=== PATIENT | female | born 1990 | race American Indian/Alaskan Native ===

== ENCOUNTER 2016-11-25 15:30 | Emergency (ER) | payer SELFPAY ==
[~2016-11-25] VITALS: Ht 160 cm; Wt 78.3 kg
[2016-11-25 15:32] VITALS: Ht 160 cm; Wt 78.3 kg
[2016-11-25 17:13] LABS: BASOPHILS % 0.5 % (0.0-2.0); EOSINOPHILS # 0.1 10^3/ul (0.0-0.5); EOSINOPHILS % 0.6 % (0.0-7.0); HEMATOCRIT 35.7 % (37.0-47.0); HEMOGLOBIN 12.3 g/dl (12.0-16.0); LYMPHOCYTES # 2.4 10^3/ul (0.8-2.9); LYMPHOCYTES % 26.2 % (15.0-51.0); MEAN CORPUSCULAR HGB CONC 34.5 g/dl (32.0-37.0); MEAN CORPUSCULAR VOLUME 89.7 fl (82.0-101.0); MEAN PLATELET VOLUME 7.7 fl (7.4-10.4); MONOCYTE # 0.6 10^3/ul (0.3-0.9); MONOCYTES % 6.1 % (0.0-11.0); NEUTROPHILS % 66.6 % (39.0-77.0); PLATELET COUNT 317 10^3/UL (140-440); RED BLOOD COUNT 3.98 10^6/ul (4.20-5.40); RED CELL DISTRIBUTION WIDTH 12.8 % (11.5-14.5)
[2016-11-25 17:17] LABS: CONDITION 1
[2016-11-25 17:42] LABS: ADD UMIC YES; URINE BILIRUBIN (Dip) NEGATIVE (NEGATIVE); URINE BLOOD (Dip) TRACE (NEGATIVE); URINE COLOR LT. YELLOW (YELLOW); URINE GLUCOSE (Dip) NEGATIVE (NEGATIVE); URINE KETONES (Dip) TRACE (NEGATIVE); URINE LEUKOCYTE ESTERASE (Dip) 3+ (NEGATIVE); URINE NITRITE (Dip) NEGATIVE (NEGATIVE); URINE TOTAL PROTEIN (Dip) NEGATIVE (NEGATIVE); URINE UROBILINOGEN (Dip) 0.2 E.U./dL (0.1-1.0)
--- NOTE | 2016-11-25 17:55 | RADRPT ---
PROCEDURE: OB Ultrasound. CLINICAL INDICATION: Positive test. Pelvic pain. TECHNIQUE: Ultrasound of the pelvis was performed with transabdominal and transvaginal sonography in the axial and sagittal planes. COMPARISON: No prior study is available for comparison. FINDINGS: There is a single intrauterine gestational sac. pole and yolk sac are present. There is heart motion. heart rate is 124 beats per minute. [place]-rump length is 0.60 cm. Mean sac diameter is 1.60 cm. Menstrual age by ultrasound dates is 6 weeks 3 days. This indicates an expected date of delivery of 07/18/2017. The right ovary appears normal measuring 3.6 x 2.3 cm. The left ovary appears normal measuring 2.5 x 2.4 cm. Color Doppler and pulsed Doppler sonography demonstrate normal flow to the ovaries. There is no other pelvic mass or free fluid. IMPRESSION: 1. Single live intrauterine gestation of 6 weeks 3 days menstrual age by ultrasound dates. 2. Expected date of delivery is 07/18/2017. RPTAT: QQ .Rao Ibarra MD, Date Time Electronically viewed and signed by .Rao Ibarra MD, on 11/25/2016 17:55 .R/
[2016-11-25 17:58] LABS: BACTERIA,URINE FEW; SQUAMOUS EPITHELIAL CELL,UR MODERATE; URINE RBCS 0-2 /HPF (0)
[2016-11-25] MEDS ORDERED: CEPH-443 PO (18:24)
--- NOTE | 2016-11-25 18:26 | ERD ---
ER Documentation Chief Complaint Date/Time DATE: 11/25/16 TIME: 18:25 Chief Complaint 6 WEEKS WITH AP HPI This patient is a 26-year-old female who is approximately 6 weeks complaining of lower pelvic pain that she has had for 2 days. She also states that this morning she woke up and she felt like her heart was racing however that has now subsided. She has no chest pain or shortness of breath. No cough or fever. No nausea or vomiting or diarrhea. She denies any vaginal bleeding. She does however admit to dysuria and increased urinary frequency. She is currently taking vitamins. Pain is mild to moderate. ROS All systems reviewed and are negative except as per history of present illness. Medications Home Meds Active Scripts Cephalexin* (Keflex*) 500 Mg Capsule, 500 MG PO BID for 5 Days, CAP Prov:ANGEL GODINEZ PA-C 11/25/16 Allergies Allergies: Coded Allergies: No Known Allergy (Unverified , 11/25/16) PMhx/Soc Medical and Surgical Hx: pt denies Medical Hx, pt denies Surgical Hx FmHx Family History: No diabetes Physical Exam Vitals Vital Signs Date Time Temp Pulse Resp B/P Pulse Ox O2 Delivery O2 Flow Rate FiO2 11/25/16 15:32 98.1 67 18 123/67 99 Physical Exam General: well developed, well nourished, alert, nontoxic, no distress Head: normocephalic, atraumatic Neck: Supple, nontender, no lymphadenopathy, no midline tenderness Respiratory: Clear to auscaultation bilaterally, speaks in full sentences, no use of accesory muscles or labored breathing, no rales, ronchi, or wheezing Cardiovascular: RRR, No murmurs GI: soft, non tender, non distended, negative murphys sign, negative mcburneys point tenderness, no cva tenderness bilaterally, no rebound or guarding Result Diagram: 11/25/16 1705 Results 24 hrs Laboratory Tests Test 11/25/16 17:05 Basophils # 0.010^3/ul Basophils % 0.5% Beta HCG, Quantitative 93878.0mIU/ml Eosinophils # 0.110^3/ul Eosinophils % 0.6% Hematocrit 35.7% Hemoglobin 12.3g/dl Lymphocytes # 2.410^3/ul Lymphocytes % 26.2% Mean Corpuscular Hemoglobin 31.0pg Mean Corpuscular Hemoglobin Concent 34.5g/dl Mean Corpuscular Volume 89.7fl Mean Platelet Volume 7.7fl Monocytes # 0.610^3/ul Monocytes % 6.1% Neutrophils # 6.010^3/ul Neutrophils % 66.6% Nucleated Red Blood Cells # 0.010^3/ul Nucleated Red Blood Cells % 0.0/100WBC Platelet Count 08744^3/UL Red Blood Count 3.9810^6/ul Red Cell Distribution Width 12.8% Urine Bacteria FEW Urine Bilirubin NEGATIVE Urine Clarity CLOUDY Urine Color LT. YELLOW Urine Glucose NEGATIVE% Urine Hemoglobin TRACE Urine Ketones TRACE Urine Leukocyte Esterase 3+ Urine Microscopic RBC 0-2/HPF Urine Microscopic WBC 2-5/HPF Urine Nitrite NEGATIVE Urine Specific [place] 1.020 Urine Squamous Epithelial Cells MODERATE Urine Total Protein NEGATIVE Urine Urobilinogen 0.2 E.U./dL Urine pH 6.5 White Blood Count 9.010^3/ul Procedures/MDM 26-year-old female presents with pelvic pain during . Her urine was positive for cystitis otherwise workup was unremarkable and ultrasound was within normal limits and there is no evidence of ectopic . Patient was given prescription for Keflex and copies of lab and ultrasound reports she can follow with primary care. Recommended this patient follow up with her primary care doctor within 48 hours or return to the emergency room for any worsening of symptoms. However this time I do believe there is suitable for outpatient management. I answered all their questions and they agreed with the plan and were discharged home. Departure Diagnosis: Primary Impression: Acute cystitis during Condition: Stable Patient Instructions: Cystitis Additional Instructions: Call your primary care doctor TOMORROW for an appointment during the next 1-2 days.See the doctor sooner or return here if your condition worsens before your appointment time. ANGEL GODINEZ PA-C Nov 25, 2016 18:26
[2016-11-25 18:37] VITALS: BP 119/88; PULSE 87; RESP 17; TEMP 98
== END 2016-11-25 18:39 | disposition home or self-care (01) ==
LOC: FTE 15:30
DX: O23.11 Infections of bladder in pregnancy, first trimester (principal); R10.2 Pelvic and perineal pain
CPT/HCPCS: 76801; 76817; 81001; 81003; 84702; 85025; 86900; 86901

== ENCOUNTER 2016-12-03 14:18 | Emergency (ER) | payer MEDICAID ==
[~2016-12-03] VITALS: Ht 167.6 cm; Wt 97.0 kg
[~2016-12-03 14:18] MED LIST: CEPH-443 PO
[2016-12-03 14:42] VITALS: Ht 167.6 cm; Wt 97.0 kg
[2016-12-03] MEDS ORDERED: METOCLOPRAMIDE 10 MG INJ IV ONE (15:30)
[2016-12-03] MEDS ORDERED: morphine 2 MG INJ IV ONE (15:30)
[2016-12-03 15:56] LABS: ADD SCAN DIFF NO
[2016-12-03 15:59] LABS: BASOPHILS % 0.4 % (0.0-2.0); EOSINOPHILS % 0.2 % (0.0-7.0); HEMATOCRIT 36.9 % (37.0-47.0); HEMOGLOBIN 12.6 g/dl (12.0-16.0); LYMPHOCYTES % 24.2 % (15.0-51.0); MEAN CORPUSCULAR HEMOGLOBIN 30.5 pg (29.0-33.0); MEAN CORPUSCULAR HGB CONC 34.1 g/dl (32.0-37.0); MEAN CORPUSCULAR VOLUME 89.3 fl (82.0-101.0); MEAN PLATELET VOLUME 9.6 fl (7.4-10.4); MONOCYTE # 0.4 10^3/ul (0.3-0.9); MONOCYTES % 4.4 % (0.0-11.0); NEUTROPHIL # 5.7 10^3/ul (1.6-7.5); NEUTROPHILS % 70.3 % (39.0-77.0); PLATELET COUNT 308 10^3/UL (140-415); RED BLOOD COUNT 4.13 10^6/ul (4.20-5.40); WHITE BLOOD COUNT 8.2 10^3/ul (4.8-10.8)
[2016-12-03 15:59] LABS: ADD UMIC YES; URINE BILIRUBIN (Dip) NEGATIVE (NEGATIVE); URINE BLOOD (Dip) NEGATIVE (NEGATIVE); URINE COLOR LT. YELLOW (YELLOW); URINE GLUCOSE (Dip) NEGATIVE (NEGATIVE); URINE KETONES (Dip) NEGATIVE (NEGATIVE); URINE LEUKOCYTE ESTERASE (Dip) 1+ (NEGATIVE); URINE NITRITE (Dip) NEGATIVE (NEGATIVE); URINE TOTAL PROTEIN (Dip) NEGATIVE (NEGATIVE); URINE UROBILINOGEN (Dip) 0.2 E.U./dL (0.1-1.0)
--- NOTE | 2016-12-03 16:11 | RADRPT ---
PROCEDURE: Abdominal Ultrasound (right upper quadrant). CLINICAL INDICATION: Abdominal pain TECHNIQUE: Multiple real-time longitudinal and transverse images of the right upper quadrant of th e abdomen were acquired utilizing a curved array transducer. Images were reviewed on a high-resoluti on PACS workstation. COMPARISON: None FINDINGS: The liver is normal in size and echogenicity. No focal masses are identified. There is no evidenc e of intra or extrahepatic ductal dilatation. The common bile duct measures 4.5 mm in diameter. Gal lstones are identified within the gallbladder. There is borderline gallbladder wall thickening. The visualized portions of the pancreas are unremarkable with obscuration of the tail of the pancrea s. No free fluid is identified. There is no evidence of right hydronephrosis or renal calcification. The right kidney measures 11.1 cm in length. The visualized portions of the aorta and inferior vena cava are within normal limits. IMPRESSION: 1. Cholelithiasis and borderline gallbladder wall thickening. 2. Otherwise unremarkable right upper quadrant ultrasound. RPTAT: KK .Fernando Chakraborty MD, Date Time Electronically viewed and signed by .Fernando Chakraborty MD, MD on 12/03/2016 16:11 .B/
[2016-12-03 16:13] LABS: ALBUMIN 4.5 g/dl (3.3-4.9)
[2016-12-03 16:14] LABS: POTASSIUM 3.9 mmol/L (3.5-5.1)
[2016-12-03 16:16] LABS: ALBUMIN/GLOBULIN RATIO 1.25; BILIRUBIN,INDIRECT 0.8 mg/dl (0-1.1); BILIRUBIN,TOTAL 0.8 mg/dl (0.2-1.3); CREATININE 0.45 mg/dl (0.44-1.00); TOTAL PROTEIN 8.1 g/dl (6.1-8.1)
[2016-12-03 16:17] LABS: CALCIUM 9.1 mg/dl (8.4-10.2)
[2016-12-03 16:25] LABS: SQUAMOUS EPITHELIAL CELL,UR MODERATE; URINE RBCS 0-2 /HPF (0)
[2016-12-03 16:26] LABS: BACTERIA,URINE FEW
--- NOTE | 2016-12-03 16:28 | RADRPT ---
PROCEDURE: US OB. CLINICAL INDICATION: Pelvic pain TECHNIQUE: Transabdominal views of the pelvis were obtained. COMPARISON: 11/25/2016 FINDINGS: There is a single intrauterine gestation with a CRL measuring 1.5 cm, corresponding to a gestational age of 7 weeks and 5 days. The heart rate is noted at 163 bpm. There is a hypoechoic fluid collection adjacent to the gestational sac, measuring 1.4 x 1.1 cm, con sistent with subchorionic hemorrhage. The right ovary measures 3.5 x 2.4 x 2.1 cm. The left ovary was not visualized. No ovarian or adnexal mass lesion is seen. There is no free fluid. RPTAT: AA IMPRESSION: Single live intrauterine with an estimated gestational age of 7 weeks and 5 days, based on ultrasound measurements. Focal area of subchorionic hemorrhage. Close follow-up is recommended. Left ovary not visualized. .Bradley Sheldon MD, MD Date Time Electronically viewed and signed by .Bradley Sheldon MD, on 12/03/2016 16:27 .S/
[2016-12-03 17:44] VITALS: BP 110/59; PULSE 78; RESP 18; TEMP 98.4
[2016-12-03] MEDS ORDERED: ACET500C5 PO (17:46)
[2016-12-03] MEDS ORDERED: METO10TA92 PO (17:46)
[2016-12-03] MEDS ORDERED: CEPH-443 PO (17:47)
--- NOTE | 2016-12-03 17:59 | ERD ---
ER Documentation Chief Complaint Date/Time DATE: 12/03/16 TIME: 17:54 Chief Complaint Complains of right upper quadrant pain HPI Patient is a 27-year-old female who is here for right upper quadrant abdominal pain since last night. She complains of nausea and vomiting. States that the pain is in her right upper quadrant and radiates to her back. Denies pelvic pain, vaginal bleeding. Denies constipation or diarrhea. Denies fever or chills. She was sent here from her primary care from the [facility] to evaluate this pain. Her last normal menstrual period was 10/10. Denies dysuria, urgency or back pain. She has not taken any medication for her symptoms. ROS All systems reviewed and are negative except as per history of present illness. Medications Home Meds Active Scripts Cephalexin* (Keflex*) 500 Mg Capsule, 500 MG PO BID for 7 Days, CAP Prov:KAEL EMANUEL-C 12/03/16 Metoclopramide* (Reglan*) 10 Mg Tablet, 10 MG PO Q6 Y for NAUSEA AND/OR VOMITING , #10 TAB Prov:KAEL EMANUEL-C 12/03/16 Acetaminophen* (Tylophen*) 500 Mg Capsule, 1 CAP PO Q6H Y for PAIN AND OR ELEVATED TEMP, #20 CAP Prov:KAEL EMANUELC 12/03/16 Cephalexin* (Keflex*) 500 Mg Capsule, 500 MG PO BID for 5 Days, CAP Prov:ANGEL GODINEZ-C 11/25/16 Allergies Allergies: Coded Allergies: No Known Allergy (Unverified , 12/03/16) PMhx/Soc Medical and Surgical Hx: pt denies Medical Hx, pt denies Surgical Hx History of Surgery: No Anesthesia Reaction: No Hx Neurological Disorder: No Hx Respiratory Disorders: No Hx Cardiac Disorders: No Hx Psychiatric Problems: No Hx Miscellaneous Medical Probl: No Hx Alcohol Use: No Hx Substance Use: No Hx Tobacco Use: No FmHx Family History: No coronary disease, No diabetes, No other Physical Exam Vitals Vital Signs Date Time Temp Pulse Resp B/P Pulse Ox O2 Delivery O2 Flow Rate FiO2 12/03/16 17:44 98.4 78 18 110/59 100 Room Air 12/03/16 14:42 98.7 83 20 119/56 100 Physical Exam GENERAL: Well-developed, well-nourished female. Appears in mild distress HEAD: Normocephalic, atraumatic. EYES: Pupils are equally reactive bilaterally. EOMs grossly intact. No conjunctival erythema. ENT: Moist mucous membranes. No uvula deviation. No kissing tonsils. No exudates. NECK: Supple. No lymphadenopathy or thyromegaly. No meningismus. negative kernig. negative brudinski. LUNG: Clear to auscultation bilaterally. No rhonchi, wheezing, rales or coarse breath sounds. HEART: Regular rate and rhythm. No murmurs, rubs or gallops. ABDOMEN: No scars, ecchymosis or rashes noted. Soft,and nondistended. Positive bowel sounds in all four quadrants. No rebound tenderness, no guarding. (-) McBurneys point tenderness. No CVA tenderness. Tender in the right upper quadrant and tenderness in her back. No pelvic pain. SKIN: Normal color. Warm and dry. No rashes or lesions. Capillary refill < 2 seconds Result Diagram: 12/03/16 1545 12/03/16 1545 Results 24 hrs Laboratory Tests Test 12/03/16 15:40 12/03/16 15:45 Urine Bacteria FEW Urine Bilirubin NEGATIVE Urine Clarity [place] CLOUDY Urine Color LT. YELLOW Urine Glucose NEGATIVE% Urine Hemoglobin NEGATIVE Urine Ketones NEGATIVE Urine Leukocyte Esterase 1+ Urine Microscopic RBC 0-2/HPF Urine Microscopic WBC 5-10/HPF Urine Nitrite NEGATIVE Urine Specific [place] 1.010 Urine Squamous Epithelial Cells MODERATE Urine Total Protein NEGATIVE Urine Urobilinogen 0.2 E.U./dL Urine pH 6.5 Alanine Aminotransferase (ALT/SGPT) 62IU/L Albumin 4.5g/dl Albumin/Globulin Ratio 1.25 Alkaline Phosphatase 118IU/L Anion Gap 20 Aspartate Amino Transf (AST/SGOT) 29IU/L Basophils # 0.010^3/ul Basophils % 0.4% Beta HCG, Quantitative 245667.0mIU/ml Blood Urea Nitrogen 6mg/dl Calcium Level 9.1mg/dl Carbon Dioxide Level 24mmol/L Chloride Level 99mmol/L Creatinine 0.45mg/dl Direct Bilirubin 0.00mg/dl Eosinophils # 0.010^3/ul Eosinophils % 0.2% Globulin 3.60g/dl Glucose Level 86mg/dl Hematocrit 36.9% Hemoglobin 12.6g/dl Indirect Bilirubin 0.8mg/dl Lipase 47U/L Lymphocytes # 2.010^3/ul Lymphocytes % 24.2% Mean Corpuscular Hemoglobin 30.5pg Mean Corpuscular Hemoglobin Concent 34.1g/dl Mean Corpuscular Volume 89.3fl Mean Platelet Volume 9.6fl Monocytes # 0.410^3/ul Monocytes % 4.4% Neutrophils # 5.710^3/ul Neutrophils % 70.3% Nucleated Red Blood Cells # 0.010^3/ul Nucleated Red Blood Cells % 0.0/100WBC Platelet Count 55269^3/UL Potassium Level 3.9mmol/L Red Blood Count 4.1310^6/ul Red Cell Distribution Width 12.0% Sodium Level 139mmol/L Total Bilirubin 0.8mg/dl Total Protein 8.1g/dl White Blood Count 8.210^3/ul Current Medications Medications (Trade) Dose Ordered Sig/Shandra Route PRN Reason Start Time Stop Time Status Last Admin Dose Admin Metoclopramide HCl (Reglan) 10 mg ONCE ONCE IV 12/03/16 15:30 12/03/16 15:32 DC 12/03/16 16:24 Morphine Sulfate (morphine) 2 mg ONCE ONCE IV 12/03/16 15:30 12/03/16 15:32 DC 12/03/16 16:25 Procedures/MDM ER COURSE: I kept the patient and/or family informed of laboratory and diagnostic imaging results throughout the emergency room course. EKG, MONITORS, & DIAGNOSTIC IMAGING: [place] [address] Radiology Main Line: [phone] DIAGNOSTIC IMAGING REPORT Patient: STEFANY ANDERSON : 1990 Age: 26 Sex: F MR #: [id number] DOS: 12/03/16 1529 Ordering MD: KEAL EMANUEL PA-C Location: [facility] Room/Bed: PROCEDURE: US OB. CLINICAL INDICATION: Pelvic pain TECHNIQUE: Transabdominal views of the pelvis were obtained. COMPARISON: 11/25/2016 FINDINGS: There is a single intrauterine gestation with a CRL measuring 1.5 cm, corresponding to a gestational age of 7 weeks and 5 days. The heart rate is noted at 163 bpm. There is a hypoechoic fluid collection adjacent to the gestational sac, measuring 1.4 x 1.1 cm, consistent with subchorionic hemorrhage. The right ovary measures 3.5 x 2.4 x 2.1 cm. The left ovary was not visualized. No ovarian or adnexal mass lesion is seen. There is no free fluid. RPTAT: AA IMPRESSION: Single live intrauterine with an estimated gestational age of 7 weeks and 5 days, based on ultrasound measurements. Focal area of subchorionic hemorrhage. Close follow-up is recommended. Left ovary not visualized. .Bradley Sheldon MD, Date Time Electronically viewed and signed by .Bradley Sheldon MD, MD on 12/03/2016 16: 27 .S/ CC: KAEL EMANUEL PA-C [place] [address] Radiology Main Line: [phone] DIAGNOSTIC IMAGING REPORT Patient: STEFANY ANDERSON : 1990 Age: 26 Sex: F MR #: [id number] DOS: 12/03/16 1526 Ordering MD: KAEL EMANUEL PA-C Location: [facility] Room/Bed: PROCEDURE: Abdominal Ultrasound (right upper quadrant). CLINICAL INDICATION: Abdominal pain TECHNIQUE: Multiple real-time longitudinal and transverse images of the right upper quadrant of the abdomen were acquired utilizing a curved array transducer. Images were reviewed on a high-resolution PACS workstation. COMPARISON: None FINDINGS: The liver is normal in size and echogenicity. No focal masses are identified. There is no evidence of intra or extrahepatic ductal dilatation. The common bile duct measures 4.5 mm in diameter. Gallstones are identified within the gallbladder. There is borderline gallbladder wall thickening. The visualized portions of the pancreas are unremarkable with obscuration of the tail of the pancreas. No free fluid is identified. There is no evidence of right hydronephrosis or renal calcification. The right kidney measures 11.1 cm in length. The visualized portions of the aorta and inferior vena cava are within normal limits. IMPRESSION: 1. Cholelithiasis and borderline gallbladder wall thickening. 2. Otherwise unremarkable right upper quadrant ultrasound. RPTAT: KK .Fernando Chakraborty MD, MD Date Time Electronically viewed and signed by .Fernando Chakraborty MD, MD on 2016 16:11 .B/ CC: KAEL EMANUEL PA-C MEDICATIONS: Morphine, Reglan. Patient told medication with no adverse reaction. LAB INTERPRETATION: CBC showed no evidence of systemic infection or severe anemia. CMP showed no evidence of electrolyte abnormalities, severe acidosis, alkalosis, renal failure , or liver disease. Lipase showed no evidence of acute pancreatitis. UA showed no evidence of hematuria or nitrates. 1+ leukocytes. Her beta hCG is 107364.0 RH: A+ MEDICAL DECISION MAKING: This is a 26-year-old female who is who presents with right upper quadrant pain.. Vital signs were reviewed. Patient is afebrile. Patient is not hypoxic. Patient is not toxic or ill-appearing. I have consulted with Dr Carrillo who has reviewed her labs and agrees with plan. Her ultrasound as read by radiologist shows that she has has cholelithiasis and borderline gallbladder wall thickening. She is afebrile and her LFTs are within normal limits. Risk versus benefits of morphine were explained with patient who agreed to morphine here in the ED. Low suspicion for ACS, AAA, perforated ulcer , bowel obstruction, cholecystitis, choledocholithiasis, cholangitis, pancreatitis, hepatic abscess, appendicitis, diverticulitis, gastroenteritis, hepatitis, peptic ulcer disease, HELLP syndrome. Low suspicion for ovarian torsion, PID, tuboovarian abscess, ectopic , bowel obstruction, pyelonephritis, appendicitis, cervicitis, septic , molar , HELLP syndrome, preeclampsia, eclampsia, placenta previa, placenta abruptia. IMPRESSION: 1. cholelithiasis with borderline gallbladder wall thickening 2. UTI DISCHARGE: At this time, patient is stable for discharge and outpatient management with no new complaints during the ER course. Patient was sent home with Tylenol and Reglan and to follow-up with OB doctor. I advised patient to return to the ER in 8 hours for reevaluation or to return sooner for any worsening pain, fever, migration of pain.. Patient will be discharged home with instructions to recheck for new or worsening symptoms such as fever, nausea, weakness, LOC and to follow up with primary care in the next 1-2 days. Patient was advised to return to the ER for any new or worsening symptoms. Plan was discussed and patient and/or family understands and agrees. Home instructions were given. Departure Diagnosis: Primary Impression: Cholelithiasis Cholelithiasis location: other site Biliary obstruction: without biliary obstruction Qualified Code: K80.80 - Biliary calculus of other site without obstruction Additional Impression: UTI (urinary tract infection) Urinary tract infection type: site unspecified Hematuria presence: without hematuria Qualified Code: N39.0 - Urinary tract infection without hematuria, site unspecified Condition: Stable Patient Instructions: Gallstones Additional Instructions: Llame al doctor MAANA y josse julio ZACHARY PARA DENTRO DE 1-2 LUCSA.Dgale a la secretaria que nosotros le instruimos hacer esta zachary.Avise o llame si carmona condicin se empeora antes de la zachary. Regresa aqui si peor o no mejor. KAEL EMANUEL PA-C Dec 03, 2016 17:59
== END 2016-12-03 18:00 | disposition home or self-care (01) ==
LOC: FTE 14:18
DX: O99.611 Diseases of the digestive system complicating pregnancy, first trimester (principal); K80.80 Other cholelithiasis without obstruction; R10.2 Pelvic and perineal pain; R10.11 Right upper quadrant pain; O23.41 Unspecified infection of urinary tract in pregnancy, first trimester; Z3A.01 Less than 8 weeks gestation of pregnancy
CPT/HCPCS: 36415; 76705; 76801; 80053; 81001; 83690; 84702; 85025; 96374; 96375; J2270; J2765; Z7502; 81003

== ENCOUNTER 2017-06-16 19:45 | Outpatient (CLI) | payer MEDICAID ==
[~2017-06-16 19:45] MED LIST changes: +ACET500C5 PO; +METO10TA92 PO
[2017-06-16 20:45] LABS: ADD UMIC YES; UR ASCORBIC ACID NEGATIVE (NEGATIVE); UR BACTERIA FEW /HPF (NONE SEEN); UR BILIRUBIN (Dip) NEGATIVE (NEGATIVE); UR BLOOD (Dip) NEGATIVE (NEGATIVE); UR CLARITY CLEAR (CLEAR); UR COLOR STRAW (YELLOW); UR GLUCOSE (Dip) NEGATIVE (NEGATIVE); UR KETONES (Dip) NEGATIVE (NEGATIVE); UR LEUKOCYTE ESTERASE (Dip) TRACE Leu/ul (NEGATIVE); UR NITRITE (Dip) NEGATIVE (NEGATIVE); UR RBC 0 /HPF (0-5); UR SPECIFIC GRAVITY (Dip) 1.004 (1.003-1.030); UR SQUAMOUS EPITHELIAL CELL FEW /HPF (FEW); UR TOTAL PROTEIN (Dip) NEGATIVE (NEGATIVE); UR UROBILINOGEN (Dip) NEGATIVE (NEGATIVE)
[2017-06-16 22:33] LABS: BASOPHILS % 0.2 % (0.0-2.0); EOSINOPHILS % 0.3 % (0.0-7.0); HEMATOCRIT 32.1 % (37.0-47.0); HEMOGLOBIN 10.9 g/dl (12.0-16.0); LYMPHOCYTES # 1.9 10^3/ul (0.8-2.9); LYMPHOCYTES % 21.6 % (15.0-51.0); MEAN CORPUSCULAR HEMOGLOBIN 30.7 pg (29.0-33.0); MEAN CORPUSCULAR VOLUME 90.4 fl (82.0-101.0); MEAN PLATELET VOLUME 9.7 fl (7.4-10.4); MONOCYTE # 0.4 10^3/ul (0.3-0.9); MONOCYTES % 4.4 % (0.0-11.0); NEUTROPHILS % 72.8 % (39.0-77.0); PLATELET COUNT 205 10^3/UL (140-415); RED BLOOD COUNT 3.55 10^6/ul (4.20-5.40); RED CELL DISTRIBUTION WIDTH 12.7 % (11.5-14.5); WHITE BLOOD COUNT 8.7 10^3/ul (4.8-10.8)
--- NOTE | 2017-06-16 22:42 | RADRPT ---
PROCEDURE: US Abdomen (right upper quadrant). CLINICAL INDICATION: Right upper quadrant abdomen pain. The patient is . TECHNIQUE: Multiple real-time longitudinal and transverse images of the right upper quadrant of th e abdomen were acquired utilizing a curved array transducer. Images were reviewed on a high-resoluti on PACS workstation. COMPARISON: None FINDINGS: The liver is normal in size and normal in echogenicity. There is no focal hepatic lesion. Color Doppler and pulsed Doppler sonography demonstrate normal a ntegrade flow in the portal vein. Multiple gallstones are present in the gallbladder. There is no gallbladder wall thickening or flui d around the gallbladder. The bile ducts are normal with the common bile duct measuring 2.6 mm in diameter. Pancreas is not visualized due to overlying bowel gas. No free fluid is present. The right kidney measures 9.8 x 6.0 x 6.1 cm. There is normal echogenicity of the right kidney. T here is no perinephric fluid collection. No hydronephrosis, mass, or calculus is seen. IMPRESSION: 1. Gallstones in the gallbladder. No evidence of cholecystitis. 2. Pancreas not visualized. 3. Otherwise normal right upper quadrant abdomen ultrasound. RPTAT: QQ .Rao Ibarra MD, MD Date Time Electronically viewed and signed by .Rao Ibarra MD, on 06/16/2017 22:42 .R/
--- NOTE | 2017-06-16 22:48 | RADRPT ---
PROCEDURE: US biophysical profile. CLINICAL INDICATION: Abdominal pain. TECHNIQUE: Multiple sonographic images of the uterus were obtained. The images were revi ewed on a PACS workstation. COMPARISON: No prior studies are available for comparison. FINDINGS: There is a single live intrauterine gestation. heart rate is 144 beats per minute. The position is cephalic. The placenta is anterior grade 1 with no abruption or previa. The TOD is 9.2 cm. (Normal = 5-20 cm.) Breathing Movement: 2 Gross Body Movement: 2 Tone: 2 Qualitative Amniotic Fluid Volume: 2 TOTAL: 8 IMPRESSION: 1. The biophysical score is 8/8. RPTAT: QQ .Rao Ibarra MD, MD Date Time Electronically viewed and signed by .Rao Ibarra MD, on 06/16/2017 22:47 .R/
--- NOTE | 2017-06-17 06:10 | PN ---
Triage Information Date/Time June 17, 2017 Reason for visit: Abdominal pain in the left mid part of abdomen Weeks of Gestation 35 weeks and 4 /Para 2 para Diabetes: none Hypertention: none Additional information 27-year-old with IUP at 35 weeks and 4 days complaining of left mid abdomen. Denies any nausea vomiting, denies any fever or chills, denies any dysuria, leaking of fluid, vaginal bleeding or uterine contractions. Objective Heart Rate: 120's Contractions: >10 Minutes Apart Exam General appearance: Alert and oriented 4. Patient appears to be in mild distress Abdomen: Soft, gravid, moderate tenderness in the left mid abdomen slightly above the umbilicus and the uterus noted. No rebound tenderness, no guarding no rigidity, no evidence of acute abdomen. Extremities: No calf tenderness, no click no edema NST: Category 1 Results/Medications Result Diagram: 06/16/173 Results 24 hrs Laboratory Tests Test 06/16/17 19:50 06/16/17 22:25 Urine Color STRAW Urine Clarity CLEAR Urine pH 7.0 Urine Specific [place] 1.004 Urine Ketones NEGATIVE Urine Nitrite NEGATIVE Urine Bilirubin NEGATIVE Urine Urobilinogen NEGATIVE Urine Leukocyte Esterase TRACE A Urine Microscopic RBC 0 Urine Microscopic WBC 2 Urine Squamous Epithelial Cells FEW Urine Bacteria FEW A Urine Hemoglobin NEGATIVE Urine Glucose NEGATIVE Urine Total Protein NEGATIVE White Blood Count 8.7 Red Blood Count 3.55 L Hemoglobin 10.9 L Hematocrit 32.1 L Mean Corpuscular Volume 90.4 Mean Corpuscular Hemoglobin 30.7 Mean Corpuscular Hemoglobin Concent 34.0 Red Cell Distribution Width 12.7 Platelet Count 205 # Mean Platelet Volume 9.7 Neutrophils % 72.8 Lymphocytes % 21.6 Monocytes % 4.4 Eosinophils % 0.3 Basophils % 0.2 Nucleated Red Blood Cells % 0.0 Neutrophils # (Manual) 6 Lymphocytes # 1.9 Monocytes # 0.4 Eosinophils # 0.0 Basophils # 0.0 Nucleated Red Blood Cells # 0.0 Imaging Results PROCEDURE: US Abdomen (right upper quadrant). CLINICAL INDICATION: Right upper quadrant abdomen pain. The patient is . TECHNIQUE: Multiple real-time longitudinal and transverse images of the right upper quadrant of the abdomen were acquired utilizing a curved array transducer. Images were reviewed on a high-resolution PACS workstation. COMPARISON: None FINDINGS: The liver is normal in size and normal in echogenicity. There is no focal hepatic lesion. Color Doppler and pulsed Doppler sonography demonstrate normal antegrade flow in the portal vein. Multiple gallstones are present in the gallbladder. There is no gallbladder wall thickening or fluid around the gallbladder. The bile ducts are normal with the common bile duct measuring 2.6 mm in diameter. Pancreas is not visualized due to overlying bowel gas. No free fluid is present. The right kidney measures 9.8 x 6.0 x 6.1 cm. There is normal echogenicity of the right kidney. There is no perinephric fluid collection. No hydronephrosis , mass, or calculus is seen. IMPRESSION: 1. Gallstones in the gallbladder. No evidence of cholecystitis. 2. Pancreas not visualized. 3. Otherwise normal right upper quadrant abdomen ultrasound. PROCEDURE: US biophysical profile. CLINICAL INDICATION: Abdominal pain. TECHNIQUE: Multiple sonographic images of the uterus were obtained. The images were reviewed on a PACS workstation. COMPARISON: No prior studies are available for comparison. FINDINGS: There is a single live intrauterine gestation. heart rate is 144 beats per minute. The position is cephalic. The placenta is anterior grade 1 with no abruption or previa. The TOD is 9.2 cm. (Normal = 5-20 cm.) Breathing Movement: 2 Gross Body Movement: 2 Tone: 2 Qualitative Amniotic Fluid Volume: 2 TOTAL: 8 IMPRESSION: 1. The biophysical score is 8/8. RPTAT: QQ Disposition: Discharge Assessment/Plan IUP at 35 weeks and 4 days Mid left abdominal pain, likely musculoskeletal No evidence of acute abdomen Incidental finding of gallstones No evidence of cholecystitis or biliary colic Patient was discharged home. Rest and taking Tylenol as needed as well as follow-up with primary OB within 24 hours discussed. Dietary instruction and avoid of fatty meal discussed due to gallstone labor precaution and kick count discussed Patient verbalized understanding. MORGAN CARTER MD Jun 17, 2017 06:10
--- NOTE | 2017-06-17 08:19 | TRIAGE ---
OB Triage Datetime Report Generated by CPN: 06/17/2017 08:18 Datetime: 06/17/2017 00:01 Stage of : OB Triage Monitor Mode: External US FHR Baseline Changes: No Baseline Change Variability: Moderate 6-25 bpm Accelerations: 15X15 Pain Assessment Pain Scale: 2 Pain Presence: Intermittent Pain Type: Pressure Pain Location: Abdomen Datetime: 06/16/2017 22:26 Stage of : OB Triage Labor Evaluation Monitor Mode: External Pattern: Normal: <= 5 Contractions in 10 Minutes Resting Tone [place]: Relaxed Heart Rate FHR Baseline Rate: 135 Monitor Mode: External US FHR Baseline Changes: No Baseline Change Variability: Moderate 6-25 bpm Accelerations: 15X15 Decelerations: None Category: Category I Datetime: 06/16/2017 21:40 Stage of : OB Triage Datetime: 06/16/2017 21:27 Labor Evaluation Monitor Mode: External Pattern: Normal: <= 5 Contractions in 10 Minutes Resting Tone [place]: Relaxed Heart Rate FHR Baseline Rate: 130 Monitor Mode: External US FHR Baseline Changes: No Baseline Change Variability: Moderate 6-25 bpm Accelerations: 15X15 Decelerations: None Category: Category I Pain Presence: Intermittent Pain Type: Sharp Pain Location: Abdomen Pain Assessment Comments: Abdomen tender to touch several spots. No ucs palpated Vaginal Exam Dilatation (cms): 0.0 Effacement (%): 50 Station: -2 Exam By: Archie Mckeon Vaginal Bleeding: None Cervix, Consistency: Moderate Cervix, Position: Posterior Datetime: 06/16/2017 21:24 Stage of : OB Triage Labor Evaluation Monitor Mode: External Pattern: Normal: <= 5 Contractions in 10 Minutes Resting Tone [place]: Relaxed Heart Rate FHR Baseline Rate: 140 Monitor Mode: External US FHR Baseline Changes: No Baseline Change Variability: Moderate 6-25 bpm Accelerations: 15X15 Decelerations: None Category: Category I Vaginal Exam Dilatation (cms): 0.0 Effacement (%): 50 Station: -2 Exam By: Archie Mike Membrane Status: Intact Vaginal Bleeding: None Cervix, Consistency: Moderate Cervix, Position: Posterior Datetime: 06/16/2017 20:11 EGA: 35.4 Datetime: 06/16/2017 20:00 Stage of : OB Triage Time of Arrival: 06/16/2017 19:36 Arrived By: Wheelchair Arrived From: Home Chief Complaint: c/o ucs and DFM Movement: Decreased Contractions: Irregular Time Contractions Began: 06/16/2017 12:00 Contractions: q10 Rupture of Membranes: Denies Vaginal Bleeding: None Vaginal Discharge: Denies Recent Sexual Intercouse: Denies Abdominal Trauma: Not Applicable Patient Complaints: Contractions Time Provider Notified: 06/16/2017 21:32 Provider Notified: Dr Joaquin Initial Plan: EFM,SVE,UA<PITER Maternal Assessment Level of Consciousness: Fully Conscious Headache: Denies Blurred Vision: No Nausea/Vomiting: Denies RUQ Epigastric Pain: Denies Facial Edema: None Labor Evaluation Monitor Mode: External Resting Tone [place]: Relaxed Heart Rate FHR Baseline Rate: 160 Monitor Mode: External US Pain Assessment Pain Scale: 7 Pain Presence: Intermittent Pain Type: Cramping Pain Location: Abdomen
== END 2017-06-17 00:12 | disposition home or self-care (01) ==
LOC: OBT 19:45 → L-D 19:48 → OBT 06-17 00:12
PROVIDERS: ATTEND Obstetrics & Gynecology
DX: O26.893 Other specified pregnancy related conditions, third trimester (principal); Z3A.35 35 weeks gestation of pregnancy; R10.9 Unspecified abdominal pain
CPT/HCPCS: 76705; 76818; 81001; 85025; Z7500; G0463

== ENCOUNTER 2017-07-11 14:03 | Inpatient (IN) | payer MEDICAID ==
[~2017-07-11] VITALS: Ht 165.1 cm; Wt 107.0 kg
[2017-07-11 14:10] VITALS: BP 122/63; PULSE 103; RESP 19; Ht 165.1 cm; Wt 107.0 kg
[2017-07-11] MEDS ORDERED: PREN1TAB79 PO (14:15)
--- NOTE | 2017-07-11 15:00 | TRIAGE ---
OB Triage Datetime Report Generated by CPN: 07/11/2017 15:00 Datetime: 07/11/2017 14:40 Assessment Type: Admission Assessment Vaginal Bleeding: None Maternal Assessment Level of Consciousness: Fully Conscious DTR's/Clonus: DTRs 2+; No Clonus Headache: Denies Blurred Vision: No Respiratory Effort: Unlabored; Regular Rhythm; Equal Expansion Breath Sounds, Left: Clear and Equal Breath Sounds, Right: Clear and Equal Nausea/Vomiting: Denies RUQ Epigastric Pain: Denies Lower Extremities Edema: None Degree: None Upper Extremities Edema: None Degree: None Facial Edema: None Fall Risk Assessment History of Falling: (0) No Secondary Diagnosis: (0) No Ambulatory Aid: (0) Bedrest/Nurse Assist IV Therapy: (0) No Gait: (0) Normal/Bedrest/Immobile Mental Status: (0) Oriented to Own Ability Fall Score: 0 Fall Risk Score Definition: No Risk: No action required Labor Evaluation Frequency: 2-7 Duration (sec)2399: 40-70 Quality: Mild Pattern: Normal: <= 5 Contractions in 10 Minutes Resting Tone [place]: Relaxed Contraction Comments: Heart Rate FHR Baseline Rate: 150 Variability: Moderate 6-25 bpm Accelerations: 15X15 Decelerations: None Category: Category I Pain Assessment Pain Scale: 3 Pain Presence: Intermittent Pain Type: Contraction Pain Location: Back Pain Goal: 3 Membrane Status: Intact Datetime: 07/11/2017 14:30 Maternal Assessment Level of Consciousness: Fully Conscious DTR's/Clonus: DTRs 1+ Headache: Denies Blurred Vision: No Respiratory Effort: Unlabored Breath Sounds, Left: Clear and Equal Breath Sounds, Right: Clear and Equal Nausea/Vomiting: Denies RUQ Epigastric Pain: Denies Facial Edema: None Labor Evaluation Frequency: 5-7 Monitor Mode: External Duration (sec)2399: 40-60 Quality: Mild Pattern: Normal: <= 5 Contractions in 10 Minutes Resting Tone [place]: Relaxed Heart Rate FHR Baseline Rate: 150 Monitor Mode: External US Variability: Moderate 6-25 bpm Accelerations: 15X15 Decelerations: None Category: Category I Pain Assessment Pain Scale: 3 Pain Presence: Intermittent Pain Type: Contraction Pain Location: Back Pain Goal: 3 Pain Relief Measures: Pain Medication Given Membrane Status: Intact Datetime: 07/11/2017 14:10 Vaginal Exam Dilatation (cms): 2.0 Effacement (%): 60 Station: -3 Exam By: SUGAR YANG Vaginal Bleeding: None Cervix, Consistency: Soft Cervix, Position: Midposition Presentation 'A': Cephalic Datetime: 07/11/2017 14:08 Assessment Type: Triage Maternal Assessment Level of Consciousness: Fully Conscious DTR's/Clonus: DTRs 2+; No Clonus Headache: Denies Blurred Vision: No Respiratory Effort: Unlabored; Regular Rhythm; Equal Expansion Breath Sounds, Left: Clear and Equal Breath Sounds, Right: Clear and Equal Nausea/Vomiting: Denies RUQ Epigastric Pain: Denies Lower Extremities Edema: None Degree: None Upper Extremities Edema: None Degree: None Facial Edema: None Fall Risk Assessment History of Falling: (0) No Secondary Diagnosis: (0) No Ambulatory Aid: (0) Bedrest/Nurse Assist IV Therapy: (0) No Gait: (0) Normal/Bedrest/Immobile Mental Status: (0) Oriented to Own Ability Fall Score: 0 Fall Risk Score Definition: No Risk: No action required Datetime: 07/11/2017 14:03 Time of Arrival: 07/11/2017 14:03 EGA: 39.1 Arrived By: Wheelchair Arrived From: Home Chief Complaint: PT CAME IN C/O SPOTTING SINCE THIS MORNING STATES + MOVEMENT AND HAVING TABITHA E UC'S. Movement: Present Contractions: Regular Time Contractions Began: 07/11/2017 07:00 Contractions: 5-10 min Rupture of Membranes: Denies Vaginal Discharge: Denies Recent Sexual Intercouse: Denies Abdominal Trauma: Not Applicable Patient Complaints: Contractions Additional Patient Complaints: NONE Time Provider Notified: 07/11/2017 14:30 Provider Notified: [place] Initial Plan: MONITOR AND VE Datetime: 06/16/2017 20:11 EGA: 35.4
[2017-07-11] MEDS: LACTATED RINGER'S 1,000 ML IV SCH ×2 (15:19→21:07)
[2017-07-11] MEDS ORDERED: LIDOCAINE 1% (MPF) 30 ML INJ INJ PRN (15:30)
[2017-07-11] MEDS ORDERED: CARBOPROST 250 MCG INJ IM PRN (15:30)
[2017-07-11] MEDS ORDERED: MISOPROSTOL 200 MCG TAB PR PRN (15:30)
[2017-07-11] MEDS ORDERED: BUTORPHANOL 2 MG INJ IV PRN (15:30)
[2017-07-11] MEDS ORDERED: METHYLERGONOVINE 0.2 MG INJ IM PRN (15:30)
[2017-07-11] MEDS ORDERED: OXYTOCIN 30 UNITS/LR 500 ML IV SCH ×2 (15:30)
[2017-07-11] MEDS ORDERED: OXYTOCIN 30 UNITS/LR 500 ML IV PRN (15:30)
[2017-07-11] MEDS ORDERED: AMPICILLIN 2 GM/NS (PMX) 100 ML IV ONE (15:30)
[2017-07-11 15:50] LABS: BASOPHILS % 0.1 % (0.0-2.0); EOSINOPHILS % 0.2 % (0.0-7.0); HEMATOCRIT 32.3 % (37.0-47.0); HEMOGLOBIN 11.2 g/dl (12.0-16.0); LYMPHOCYTES # 1.4 10^3/ul (0.8-2.9); LYMPHOCYTES % 17.7 % (15.0-51.0); MEAN CORPUSCULAR HEMOGLOBIN 30.9 pg (29.0-33.0); MEAN CORPUSCULAR HGB CONC 34.7 g/dl (32.0-37.0); MEAN PLATELET VOLUME 10.6 fl (7.4-10.4); MONOCYTE # 0.5 10^3/ul (0.3-0.9); MONOCYTES % 5.9 % (0.0-11.0); NEUTROPHILS % 75.5 % (39.0-77.0); PLATELET COUNT 217 10^3/UL (140-415); RED BLOOD COUNT 3.63 10^6/ul (4.20-5.40); RED CELL DISTRIBUTION WIDTH 12.7 % (11.5-14.5)
[2017-07-11 16:06] LABS: INR 0.83; PARTIAL THROMBOPLASTIN TIME 27.4 Sec (25.0-35.0); PROTIME 11.4 Sec (12.2-14.2); PT RATIO 0.9
[2017-07-11] MEDS ORDERED: LACTATED RINGER'S 1,000 ML IV PRN (20:00)
[2017-07-11] MEDS: AMPICILLIN 1 GM/NS (PMX) 50 ML IV SCH (22:01)
[2017-07-11] MEDS ORDERED: ONDANSETRON 4 MG INJ IV PRN (22:30)
[2017-07-12] MEDS: AMPICILLIN 1 GM/NS (PMX) 50 ML IV SCH ×3 (03:07→11:04)
[2017-07-12] MEDS: LACTATED RINGER'S 1,000 ML IV SCH (06:16)
--- NOTE | 2017-07-12 12:49 | HP ---
Date/Time of Note Date/Time of Note DATE: 07/12/17 TIME: 12:48 OB - History Hx of Present Free Text/Dictation AT TERM IN LABOR Care: Good Care Ultrasounds: Normal mid trimester US Obstetrical Complications: None Medical Complications: None Past Family/Social History * Past Medical, Surgical, Family and Obstetric Histories reviewed from chart. OB Admission Exam Vital Signs Vital Signs Vital Signs Date Time Temp Pulse Resp B/P Pulse Ox O2 Delivery O2 Flow Rate FiO2 07/11/17 14:10 98.4 103 19 122/63 99 Room Air Physical Exam HEENT: WNL Heart: Rhythm Normal Lungs: Clear, Equal Abdomen: WNL Extremities: Normal Reflexes: Normal Cervical Dilatation: 10cm Effacement: 100% Station: +3 Amniotic Fluid: Thick Meconium Accelerations: Accelerations Present Decelerations: No Decelerations Contractions on Admission: 6-10 Minutes Apart Last 72 hours Lab Results CBC & BMP 07/11/17 15:08 OB Assessment/Plan Reason for admission: active labor Plan: Expectant Management JULIO C PERRY MD Jul 12, 2017 12:49
--- NOTE | 2017-07-12 12:50 | LDN ---
Date/Time of Note Date/Time of Note DATE: 07/12/17 TIME: 12:49 Delivery Summary NSD w/ no complications Placenta Delivered: Spontaneously Meconium: none Episiotomy: No Perineal laceration: 1 Anesthesia type: Local Estimated blood loss: 300 Sponge & Needle done & correct: Yes All needle counts correct: Yes Any foreign bodies felt in the: No Problems: JULIO C PERRY MD Jul 12, 2017 12:50
[2017-07-12] MEDS ORDERED: OXYTOCIN 30 UNITS/LR 500 ML IV SCH (13:00)
[2017-07-12] MEDS ORDERED: CARBOPROST 250 MCG INJ IM PRN (15:30)
[2017-07-12] MEDS ORDERED: ACETAMINOPHEN 325 MG TAB PO PRN (15:30)
[2017-07-12] MEDS ORDERED: MISOPROSTOL 200 MCG TAB PR PRN (15:30)
[2017-07-12] MEDS ORDERED: LANOLIN 7 GM TUBE TOP PRN (15:30)
[2017-07-12] MEDS ORDERED: ZOLPIDEM 5 MG TAB PO PRN (15:30)
[2017-07-12] MEDS ORDERED: METHYLERGONOVINE 0.2 MG INJ IM PRN (15:30)
[2017-07-12] MEDS ORDERED: DIPHENHYDRAMINE 25 MG CAP PO PRN (15:30)
[2017-07-12] MEDS ORDERED: MAGNESIUM HYDROXIDE 30ML CUP PO PRN (15:30)
[2017-07-12] MEDS ORDERED: OXYTOCIN 30 UNITS/LR 500 ML IV PRN (15:30)
[2017-07-12 15:50] VITALS: BP 121/64; PULSE 76; RESP 16
[2017-07-12] MEDS: HYDROCODONE/APAP (5/325) TAB PO PRN (15:57)
[2017-07-12] MEDS: OXYTOCIN 30 UNITS/LR 500 ML IV SCH ×2 (15:58→19:14)
[2017-07-12] MEDS: WITCH HAZEL/GLYCERIN PAD PR PRN (17:36)
[2017-07-12] MEDS: IBUPROFEN 800 MG TAB PO SCH (17:36)
[2017-07-12] MEDS: BENZOCAINE 20% 56 ML SPRAY TOP PRN (17:37)
[2017-07-12 20:00] VITALS: BP 103/57; PULSE 85; RESP 18
[2017-07-12] MEDS: SENNA/DOCUSATE NA (8.6MG/50MG) TAB PO PRN ×2 (21:11→21:34)
[2017-07-12] MEDS: LACTATED RINGER'S 1,000 ML IV* SCH (21:12)
[2017-07-13] MEDS: IBUPROFEN 800 MG TAB PO SCH ×4 (00:34→17:51)
[2017-07-13 04:00] VITALS: BP 122/74; PULSE 18; RESP 17
[2017-07-13] MEDS: LACTATED RINGER'S 1,000 ML IV* SCH ×3 (07:14→23:14)
[2017-07-13] MEDS: HYDROCODONE/APAP (5/325) TAB PO PRN (08:03)
[2017-07-13 08:15] VITALS: BP 109/63; PULSE 64; RESP 20
[2017-07-13 11:19] LABS: BASOPHILS % 0.2 % (0.0-2.0); EOSINOPHILS % 0.2 % (0.0-7.0); HEMATOCRIT 30.2 % (37.0-47.0); HEMOGLOBIN 10.2 g/dl (12.0-16.0); LYMPHOCYTES # 1.7 10^3/ul (0.8-2.9); LYMPHOCYTES % 16.8 % (15.0-51.0); MEAN CORPUSCULAR HEMOGLOBIN 30.8 pg (29.0-33.0); MEAN CORPUSCULAR HGB CONC 33.8 g/dl (32.0-37.0); MEAN CORPUSCULAR VOLUME 91.2 fl (82.0-101.0); MEAN PLATELET VOLUME 10.7 fl (7.4-10.4); MONOCYTE # 0.4 10^3/ul (0.3-0.9); MONOCYTES % 3.8 % (0.0-11.0); NEUTROPHILS % 78.4 % (39.0-77.0); PLATELET COUNT 214 10^3/UL (140-415); RED BLOOD COUNT 3.31 10^6/ul (4.20-5.40); RED CELL DISTRIBUTION WIDTH 12.8 % (11.5-14.5); WHITE BLOOD COUNT 10.2 10^3/ul (4.8-10.8)
[2017-07-13 16:00] VITALS: BP 120/58; PULSE 89; RESP 18
--- NOTE | 2017-07-13 17:43 | DS ---
Date/Time of Note Date/Time of Note DATE: 07/13/17 TIME: 17:43 Discharge Summary Admission/Discharge Info Admit Date/Time Jul 11, 2017 at 14:30 Discharge Date/Time Discharge Diagnosis TERM PREG Patient Condition: Stable Hospital Course UNREMARKABLE Home Meds Reported Medications Vit W-Ca,Fe,FA(<1 mg) ( Vitamins) 1 Each Tablet, 1 EACH PO, TAB 07/11/17 Primary Care Provider Care Physician No Primary Pending Labs Laboratory Tests Test 07/13/17 10:30 White Blood Count 10.210^3/ul (4.8-10.8) Red Blood Count 3.3110^6/ul (4.20-5.40) Hemoglobin 10.2g/dl (12.0-16.0) Hematocrit 30.2% (37.0-47.0) Mean Corpuscular Volume 91.2fl (82.0-101.0) Mean Corpuscular Hemoglobin 30.8pg (29.0-33.0) Mean Corpuscular Hemoglobin Concent 33.8g/dl (32.0-37.0) Red Cell Distribution Width 12.8% (11.5-14.5) Platelet Count 44351^3/UL (140-415) Mean Platelet Volume 10.7fl (7.4-10.4) Neutrophils % 78.4% (39.0-77.0) Lymphocytes % 16.8% (15.0-51.0) Monocytes % 3.8% (0.0-11.0) Eosinophils % 0.2% (0.0-7.0) Basophils % 0.2% (0.0-2.0) Nucleated Red Blood Cells % 0.0/100WBC (0.0-0.0) Neutrophils # 8.010^3/ul (1.6-7.5) Lymphocytes # 1.710^3/ul (0.8-2.9) Monocytes # 0.410^3/ul (0.3-0.9) Eosinophils # 0.010^3/ul (0.0-0.5) Basophils # 0.010^3/ul (0.0-0.1) Nucleated Red Blood Cells # 0.010^3/ul (0.0-0.0) JULIO C PERRY MD Jul 13, 2017 17:43
[2017-07-13 20:00] VITALS: BP 119/57; PULSE 89; RESP 18
[2017-07-13] MEDS: WITCH HAZEL/GLYCERIN PAD PR PRN (22:08)
[2017-07-13] MEDS: BENZOCAINE 20% 56 ML SPRAY TOP PRN (22:09)
[2017-07-14] MEDS: IBUPROFEN 800 MG TAB PO SCH ×4 (00:15→17:24)
[2017-07-14 04:55] VITALS: BP 113/67; PULSE 75; RESP 18
[2017-07-14] MEDS: LACTATED RINGER'S 1,000 ML IV* SCH (07:14)
[2017-07-14 08:00] VITALS: BP 102/60; PULSE 82; RESP 16
[2017-07-14] MEDS ORDERED: VARICELLA VACCINE LIVE/PF 1,350 UNIT/0.5 ML ML SC* ONE (09:00)
[2017-07-14] MEDS ORDERED: MEASLES,MUMPS,RUBELLA VACCINE INJ SC* ONE (09:00)
[2017-07-14] MEDS ORDERED: DIPHTH/TET/ACEL PERTUSS (ADULT) 0.5 ML VIAL IM* ONE (09:00)
[2017-07-14 16:00] VITALS: BP 122/69; PULSE 92; RESP 16
== END 2017-07-14 18:11 | disposition home or self-care (01) | DRG 775 ==
LOC: OBT 14:03 → L-D 14:04 → OBT 14:30 → L-D 16:59 → PP1 07-12 15:47
PROVIDERS: ADMIT Obstetrics & Gynecology; ATTEND Obstetrics & Gynecology
PROC: 10E0XZZ Delivery of Products of Conception, External Approach (ICD-10-PCS; principal; 2017-07-12)
PROC: 0HQ9XZZ Repair Perineum Skin, External Approach (ICD-10-PCS; 2017-07-12)
PROC: 3E033VJ Introduction of Other Hormone into Peripheral Vein, Percutaneous Approach (ICD-10-PCS; 2017-07-12)
DX: O70.0 First degree perineal laceration during delivery (principal); Z37.0 Single live birth; Z3A.38 38 weeks gestation of pregnancy
CPT/HCPCS: 85025; 85610; 85730; 86592; 86900; 86901; 87340; 90715; 90716; 99464; G0463; J0290; J0595; J2405; J2590; J7120

== ENCOUNTER 2018-04-16 11:05 | Emergency (ER) | END 2018-04-16 13:58 | disposition home or self-care (01) ==

== ENCOUNTER 2018-05-12 09:28 | Emergency (ER) | END 2018-05-12 10:44 | disposition home or self-care (01) ==

== ENCOUNTER 2019-02-06 07:46 | Emergency (ER) | payer MEDICAID ==
[~2019-02-06] VITALS: Wt 88.0 kg
[~2019-02-06 07:46] MED LIST changes: -ACET500C5 PO; +AMOX1TAB10 PO; +AMOX500C2 PO; -CEPH-443 PO; +IBUP-1542 PO; -METO10TA92 PO; +ONDA8TAB14 PO; +PRED20TA PO
[2019-02-06 07:47] VITALS: BP 148/91; RESP 20
[2019-02-06] MEDS ORDERED: ACETAMINOPHEN 500 MG TAB PO STA (07:59)
[2019-02-06] MEDS ORDERED: IBUPROFEN 800 MG TAB PO ONE (08:00)
[2019-02-06] MEDS ORDERED: AMOX1TAB10 PO (09:17)
[2019-02-06] MEDS ORDERED: NAPR-985 PO (09:17)
[2019-02-06] MEDS ORDERED: ACET325T33 PO (09:17)
[2019-02-06 09:31] VITALS: PULSE 107
--- NOTE | 2019-02-06 11:11 | ERD ---
ER Documentation Chief Complaint Chief Complaint SORE THROAT FOR THE PAST 4 DAYS. NO STRIDOR OR SOB NOTED. HPI 28-year-old female presenting with sore throat for the last 4 days. Patient has had no cough and no runny nose. Took Tylenol 8 hours prior to my evaluation. Denies medical problems. NKDA. Surgical history denies. Social history smokes cigarettes occasionally. ROS All systems reviewed and are negative except as per history of present illness. Medications Home Meds Active Scripts Acetaminophen* (Tylenol*) 325 Mg Tablet, 2 TAB PO Q6 PRN for PAIN AND OR ELEVATED TEMP, #20 TAB Prov:FLASH LAMBERT PA-C 02/06/19 Naproxen* (Naprosyn*) 500 Mg Tablet, 500 MG PO BID PRN for PAIN AND/OR INFLAMMATION, #30 TAB Prov:FLASH LAMBERT PA-C 02/06/19 Amoxicillin/Potassium Clav (Amox-Clav 875-125 mg Tablet) 875-125 mg Tab, 1 TAB PO BID for 7 Days, #14 TAB Prov:FLASH LAMBERT PA-C 02/06/19 Prednisone* (Prednisone*) 20 Mg Tab, 40 MG PO DAILY for 4 Days, TAB Prov:ELICEO MATAMOROS PA-C 05/12/18 Amoxicillin/Potassium Clav (Amox-Clav 875-125 mg Tablet) 875-125 mg Tab, 1 TAB PO BID for 7 Days, #14 TAB Prov:ELICEO MATAMOROS PA-C 05/12/18 Ibuprofen* (Motrin*) 600 Mg Tab, 600 MG PO Q6, #30 TAB Prov:ELICEO MATAMOROS PA-C 05/12/18 Ondansetron (Ondansetron Odt) 8 Mg Tab.rapdis, 8 MG PO Q6H PRN for NAUSEA AND/OR VOMITING, #10 TAB Prov:DEX ACOSTA MD 04/16/18 Ibuprofen* (Ibuprofen*) 600 Mg Tablet, 600 MG PO Q6, #20 TAB Prov:DEX ACOSTA MD 04/16/18 Amoxicillin* (Amoxicillin*) 500 Mg Cap, 500 MG PO TID for 10 Days, CAP Prov:DEX ACOSTA MD 04/16/18 Allergies Allergies: Coded Allergies: No Known Allergy (Unverified , 02/06/19) PMhx/Soc History of Surgery: No Anesthesia Reaction: No Hx Neurological Disorder: No Hx Respiratory Disorders: No Hx Cardiac Disorders: No Hx Psychiatric Problems: No Hx Miscellaneous Medical Probl: No Hx Alcohol Use: No Hx Substance Use: No Hx Tobacco Use: No FmHx Family History: No diabetes, No coronary disease, No other Physical Exam Vitals Vital Signs Date Temp Pulse Resp B/P (MAP) Pulse Ox O2 O2 Flow FiO2 Time Delivery Rate 02/06/19 100.5 107 09:31 02/06/19 101.1 08:06 02/06/19 101.1 08:06 02/06/19 101.1 112 20 148/91 99 07:47 (110) Physical Exam GENERAL: The patient is well-appearing, well-nourished, in no acute distress HEENT: Atraumatic. Conjunctivae are pink. Pupils equal, round, and reactive to light. There is no scleral icterus. Tympanic membranes clear bilaterally. Oropharynx clear. NECK: C-spine is soft and supple. There is no meningismus. There is no cervical lymphadenopathy. CHEST: Clear to auscultation bilaterally. There are no rales, wheezes or rhonchi. HEART: Regular rate and rhythm. No murmurs, clicks, rubs or gallops. Results 24 hrs Laboratory Tests Test 02/06/19 08:07 Monoscreen Negative Current Medications Medications Dose Sig/Shandra Start Time Status Last (Trade) Ordered Route PRN Stop Time Admin Dose Reason Admin Ibuprofen 800 mg ONCE ONCE 02/06/19 DC 02/06/19 (Motrin) PO 08:00 08:06 02/06/19 08:01 1,000 mg ONCE STAT 02/06/19 DC 02/06/19 Acetaminophen PO 07:59 08:06 (Tylenol 02/06/19 08:01 Tab) Procedures/MDM ER course: Negative influenza. Negative mono. Positive strep. MDM: 28-year-old female presenting with findings consistent with. Patient had positive strep exam in the ER. Patient will be treated with oral antibiotics. I have low suspicion for respiratory distress or hypoxia. I have low suspicion for meningitis or sepsis. All questions answered discharge no Departure Diagnosis: Primary Impression: Strep throat Condition: Stable Patient Instructions: Strep Throat Referrals: COMM[facility] YOU HAVE RECEIVED A MEDICAL SCREENING EXAM AND THE RESULTS INDICATE THAT YOU DO NOT HAVE A CONDITION THAT REQUIRES URGENT TREATMENT IN THE EMERGENCY DEPARTMENT. FURTHER EVALUATION AND TREATMENT OF YOUR CONDITION CAN WAIT UNTIL YOU ARE SEEN IN YOUR DOCTORS OFFICE WITHIN THE NEXT 1-2 DAYS. IT IS YOUR RESPONSIBILITY TO MAKE AN APPOINTMENT FOR FOLOW-UP CARE. IF YOU HAVE A PRIMARY DOCTOR --you should call your primary doctor and schedule an appointment IF YOU DO NOT HAVE A PRIMARY DOCTOR YOU CAN CALL OUR PHYSICIAN REFERRAL HOTLINE AT IF YOU CAN NOT AFFORD TO SEE A PHYSICIAN YOU CAN CHOSE FROM THE FOLLOWING [facility] [address] [address]. [facility] [address] [facility] [facility] [address] [facility] [facility] [address] [facility]. [facility] [address] [facility]. [facility] [address] Additional Instructions: FOLLOW UP WITH YOUR PRIMARY CARE PHYSICIAN TOMORROW.Return to this facility if you are not improving as expected. FLASH LAMBERT PA-C Feb 06, 2019 11:11
== END 2019-02-06 09:31 | disposition home or self-care (01) ==
LOC: FTE 07:46
DX: J02.0 Streptococcal pharyngitis (principal)
CPT/HCPCS: 36415; 86308; 87400; 87880; Z7502; Z7610; 99283

== ENCOUNTER 2019-02-26 13:38 | Emergency (ER) | payer MEDICAID ==
[~2019-02-26] VITALS: Wt 90.0 kg
[~2019-02-26 13:38] MED LIST changes: +ACET325T33 PO; +NAPR-985 PO
[2019-02-26 13:41] VITALS: BP 132/61; PULSE 62; RESP 18
[2019-02-26] MEDS ORDERED: CLIN300C10 PO (14:56)
[2019-02-26] MEDS ORDERED: PRED20TA PO (14:56)
--- NOTE | 2019-02-26 14:59 | ERD ---
ER Documentation Chief Complaint Chief Complaint SORE THROAT HPI 28-year-old otherwise healthy female presents with sore throat that she states she has had for 3 days. She states she has a recent history of strep throat. No fever. He is tolerating oral intake but has pain with swallowing. No nausea or vomiting. No cough. ROS All systems reviewed and are negative except as per history of present illness. Medications Home Meds Active Scripts Clindamycin Hcl* (Clindamycin Hcl*) 300 Mg Capsule, 300 MG PO TID for 10 Days, CAP Prov:ANGEL GODINEZ PA-C 02/26/19 Prednisone* (Prednisone*) 20 Mg Tab, 60 MG PO DAILY for 5 Days, TAB Prov:ANGEL GODINEZ PA-C 02/26/19 Acetaminophen* (Tylenol*) 325 Mg Tablet, 2 TAB PO Q6 PRN for PAIN AND OR ELEVATED TEMP, #20 TAB Prov:FLASH LAMBERT PA-C 02/06/19 Naproxen* (Naprosyn*) 500 Mg Tablet, 500 MG PO BID PRN for PAIN AND/OR INFLAMMATION, #30 TAB Prov:FLASH LAMBERT PA-C 02/06/19 Amoxicillin/Potassium Clav (Amox-Clav 875-125 mg Tablet) 875-125 mg Tab, 1 TAB PO BID for 7 Days, #14 TAB Prov:FLASH LAMBERT PA-C 02/06/19 Prednisone* (Prednisone*) 20 Mg Tab, 40 MG PO DAILY for 4 Days, TAB Prov:ELICEO MATAMOROS PA-C 05/12/18 Amoxicillin/Potassium Clav (Amox-Clav 875-125 mg Tablet) 875-125 mg Tab, 1 TAB PO BID for 7 Days, #14 TAB Prov:ELICEO MATAMOROS PA-C 05/12/18 Ibuprofen* (Motrin*) 600 Mg Tab, 600 MG PO Q6, #30 TAB Prov:ELICEO MATAMOROS PA-C 05/12/18 Ondansetron (Ondansetron Odt) 8 Mg Tab.rapdis, 8 MG PO Q6H PRN for NAUSEA AND/OR VOMITING, #10 TAB Prov:DEX ACOSTA MD 04/16/18 Ibuprofen* (Ibuprofen*) 600 Mg Tablet, 600 MG PO Q6, #20 TAB Prov:DEX ACOSTA MD 04/16/18 Amoxicillin* (Amoxicillin*) 500 Mg Cap, 500 MG PO TID for 10 Days, CAP Prov:DEX ACOSTA MD 04/16/18 Allergies Allergies: Coded Allergies: No Known Allergy (Unverified , 02/06/19) PMhx/Soc History of Surgery: No Anesthesia Reaction: No Hx Neurological Disorder: No Hx Respiratory Disorders: No Hx Cardiac Disorders: No Hx Psychiatric Problems: No Hx Miscellaneous Medical Probl: No Hx Alcohol Use: No Hx Substance Use: No Hx Tobacco Use: No FmHx Family History: No diabetes Physical Exam Vitals Vital Signs Date Temp Pulse Resp B/P (MAP) Pulse Ox O2 O2 Flow FiO2 Time Delivery Rate 02/26/19 99.7 62 18 132/61 99 13:41 (84) Physical Exam INITIAL VITAL SIGNS: Reviewed by me GENERAL: Awake, alert and oriented x 4, well appearing, nontoxic, speaking in full sentences. No acute distress HEAD: Atraumatic NECK: Supple. No masses. Full range of motion. No meningismus. No midline tenderness. EYES: EOMI. PERRL. THROAT: Bilateral tonsillar erythema and edema with scant exudates, uvula midline, no kissing tonsils RESPIRATORY: Clear to auscultation bilaterally. Symmetric chest wall rise. No wheezing or rales. No accessory muscle use. CV: Regular rate and rhythm. No murmurs, rubs, or gallops. Results 24 hrs Current Medications Medications Dose Sig/Shandra Start Time Status Last (Trade) Ordered Route PRN Stop Time Admin Dose Reason Admin 10 mg ONCE ONCE 02/26/19 02/26/19 Dexamethasone IM 15:00 02/26/19 14:52 (Decadron) 15:01 Procedures/MDM Patient had strep throat which was confirmed on strep test 1 month ago presents again today with the same. Low suspicion for peritonsillar abscess. She was given Decadron here and a prescription for prednisone as well as clindamycin. Recommended she follow-up with primary care for possible outpatient referral to ENT. Reviewed case with Dr. Johnson who agrees with the plan. Patient counseled regarding my diagnostic impression and care plan. Prior to discharge all questions answered. Pt agrees with treatment plan and understands strict return precautions. Pt is instructed to follow up with primary care provider within 24- 48 hours. Precautionary instructions provided including instructions to return to the ER if not improving or for any worsening or changing symptoms or concerns. Departure Diagnosis: Primary Impression: Pharyngitis Condition: Stable Patient Instructions: Pharyngitis, Strep (Presumed) Additional Instructions: Call your primary care doctor TOMORROW for an appointment during the next 1-2 days.See the doctor sooner or return here if your condition worsens before your appointment time. ANGEL GODINEZ PA-C February 26, 2019 14:59
[2019-02-26] MEDS ORDERED: DEXAMETHASONE 10 MG/ML 1 ML INJ IM ONE (15:00)
== END 2019-02-26 15:04 | disposition home or self-care (01) ==
LOC: FTE 13:38
DX: J02.9 Acute pharyngitis, unspecified (principal)
CPT/HCPCS: 96372; J1100; Z7502